=== PATIENT | female | born 1975 | race Caucasian/White ===

== ENCOUNTER → 2018-01-12 | Outpatient (CLI) | payer OTHER ==
[~2018-01-12] MED LIST: OMEP40CA PO; ONDA4TAB46 PO
--- NOTE | 2018-01-12 11:43 | DIAGNOSTIC IMAGING REPORT ---
ULTRASOUND-GUIDED FINE-NEEDLE ASPIRATION OF A RIGHT THYROID NODULE HISTORY: Right thyroid nodule. THYROID NODULE COMPARISON: Outside hospital thyroid ultrasound 01/03/2018. PROCEDURE: Written informed consent was obtained. The neck was prepped and draped in the usual sterile fashion. 1% lidocaine was used for local anesthesia. A total of 3 passes using a 25-gauge needle were made through the dominant 2.3 cm right thyroid nodule under ultrasound guidance. Specimens were given to the on-site pathologist who determined adequate tissue for diagnosis. The patient tolerated the procedure well. There were no immediate locations. IMPRESSION: Successful ultrasound-guided fine-needle aspiration of a right thyroid nodule. Electronically signed by: Jas Wilder M.D. 01/12/2018 11:42 AM Dictated Date/Time: 01/12/2018 11:41 AM
== END | disposition home or self-care (01) ==
LOC: C.ULTR 10:14
PROVIDERS: ATTEND Surgery
DX: E04.1 Nontoxic single thyroid nodule (principal)